=== PATIENT | female | born 1995 | race Two or more races ===

== ENCOUNTER 2022-01-14 16:15 | Emergency (ER) | payer MEDICAID ==
[2022-01-14] MEDS ORDERED: Sodium Chloride 0.9% 10 ML Syringe FLUSH PRN (17:01)
[2022-01-14] MEDS ORDERED: Sodium Chloride 0.9% 1,000 ML IV ONE ×3 (17:01→22:45)
[2022-01-14] MEDS ORDERED: Ondansetron 4 MG/2 ML SDV IVPUSH ONE (17:03)
[2022-01-14] MEDS ORDERED: Promethazine 25 MG in Sodium Chloride 0.9% 50 ML IV ONE (19:31)
== END 2022-01-15 08:15 | disposition home or self-care (01) ==
LOC: JD.ED 16:15
DX: O21.9 Vomiting of pregnancy, unspecified (principal); I95.1 Orthostatic hypotension; Z3A.01 Less than 8 weeks gestation of pregnancy; Z79.899 Other long term (current) drug therapy
CPT/HCPCS: 36415; 80053; 83735; 84702; 85025; 96361; 96365; 96375; 99284; J2405; J2550; J3490; J7030

== ENCOUNTER 2022-08-13 11:15 | Inpatient (IN) | payer MEDICAID ==
[2022-08-13] MEDS ORDERED: Ondansetron 4 MG/2 ML SDV IVPUSH PRN (13:24)
[2022-08-13] MEDS ORDERED: Nalbuphine 10 MG/0.5 ML Syringe IVPUSH PRN (13:24)
[2022-08-13] MEDS ORDERED: Sodium Chloride 0.9% 10 ML Syringe FLUSH PRN (13:24)
[2022-08-13] MEDS ORDERED: Oxytocin/Lactated Ringers 10 UNIT/1,000 ML BAG IV SCH (13:30)
[2022-08-13] MEDS ORDERED: Lactated Ringers 1,000 ML IV SCH (13:30)
[2022-08-13 14:21] LABS: HEMATOCRIT 32.2 % (34.1-44.9); HEMOGLOBIN 9.9 gm/dl (11.2-15.7); MEAN CORPUSCULAR HEMOGLOBIN 24.4 pg (25.6-32.2); MEAN CORPUSCULAR HGB CONC 30.7 g/dl (32.2-35.5); MEAN CORPUSCULAR VOLUME 79.3 fl (79.4-94.8); MEAN PLATELET VOLUME 12.9 fl (9.4-12.3); PLATELET COUNT,PLT 150 K/mm3 (182-369); RED BLOOD CELL COUNT 4.06 M/mm3 (3.98-5.22); WHITE BLOOD CELL COUNT,WBC 14.13 K/mm3 (3.98-10.04)
[2022-08-13] MEDS ORDERED: Lidocaine 1% 50 ML MDV ONE (15:52)
[2022-08-13] MEDS ORDERED: Benzocaine/Menthol 20%-0.5% Spray 78 GM Cannister TOP PRN (16:21)
[2022-08-13] MEDS ORDERED: Acetaminophen 325 MG Tab PO PRN (16:21)
[2022-08-13] MEDS ORDERED: Docusate Sodium 100 MG Cap PO PRN (16:21)
[2022-08-13] MEDS ORDERED: Witch Hazel Medicated Pads 40/Jar TOP PRN (16:21)
[2022-08-13] MEDS: Ibuprofen 600 MG Tab PO PRN (16:55)
[2022-08-13] MEDS ORDERED: Sodium Chloride 0.9% 10 ML Syringe FLUSH SCH (21:00)
[2022-08-14] MEDS: Ibuprofen 600 MG Tab PO PRN ×2 (00:27→13:25)
== END 2022-08-14 17:15 | disposition home or self-care (01) | DRG 807 ==
LOC: JD.OBCHECK 11:15 → JD.OB 11:35 → JD.OBCHECK 13:23 → JD.OB 13:24 → OBSVTOIN 16:06 → JD.OB 16:07
PROVIDERS: ADMIT Obstetrics & Gynecology; ATTEND Obstetrics & Gynecology
PROC: 10E0XZZ Delivery of Products of Conception, External Approach (ICD-10-PCS; principal; 2022-08-13)
PROC: 0KQM0ZZ Repair Perineum Muscle, Open Approach (ICD-10-PCS; 2022-08-13)
DX: O70.1 Second degree perineal laceration during delivery (principal); Z37.0 Single live birth; Z3A.38 38 weeks gestation of pregnancy
CPT/HCPCS: 36415; 59025; 59409; 85027; 86592; 86850; 86900; 86901; A9270-GY; J2001